=== PATIENT | female | born 1965 | race Hispanic/Latino ===

== ENCOUNTER 2023-03-03 23:51 | Emergency (ER) | payer SELFPAY ==
[2023-03-04] MEDS ORDERED: HYDROCODONE/APAP 5/325 MG TAB ONE (00:40)
--- NOTE | 2023-03-04 01:48 | ER ---
Nurse's Notes [facility] Name: Berta Betts Age: 58 yrs Sex: Female : 1965 Arrival Date: 03/03/2023 Time: 23:51 Bed Treatment Private MD: Diagnosis: Contusion of scalp Presentation: 03/04 00:09 Chief complaint: Patient states: she slipped and fell when coming out of the shower. Pt cm10 states that she hit the back of her head on the toilet bowl. No LOC, no blood thinners. Coronavirus screen: Vaccine status: Patient reports receiving the 2nd dose of the covid vaccine. Client denies travel out of the [place] in the last 14 days. Ebola Screen: Patient denies travel to an Ebola-affected area in the 21 days before illness onset. No symptoms or risks identified at this time. Initial Sepsis Screen: Does the patient meet any 2 criteria? No. Patient's initial sepsis screen is negative. Does the patient have a suspected source of infection? No. Patient's initial sepsis screen is negative. Risk Assessment: Do you want to hurt yourself or someone else? Patient reports no desire to harm self or others. Onset of symptoms was March 04, 2023 at 00:10. 00:09 Method Of Arrival: Ambulatory cm10 00:09 Acuity: BARBARA 4 cm10 Triage Assessment: 00:11 General: Appears in no apparent distress. comfortable, Behavior is calm, cooperative. cm10 Pain: Complains of pain in back of head. EENT: No deficits noted. No signs and/or symptoms were reported regarding the EENT system. Neuro: No deficits noted. Diaz Agitation-Sedation Scale (RASS): 0 - Alert and Calm Level of Consciousness is awake, alert, obeys commands, Oriented to person, place, time, situation. Cardiovascular: No deficits noted. Patient's skin is warm and dry. Respiratory: No deficits noted. Airway is patent Respiratory effort is even, unlabored, Respiratory pattern is regular, symmetrical. GI: No deficits noted. No signs and/or symptoms were reported involving the gastrointestinal system. : No deficits noted. No signs and/or symptoms were reported regarding the genitourinary system. Derm: No deficits noted. No signs and/or symptoms reported regarding the dermatologic system. Skin is intact, Skin is pink, warm \T\ dry. Musculoskeletal: No deficits noted. No signs and/or symptoms reported regarding the musculoskeletal system. Range of motion: intact in all extremities. Historical: - Allergies: 00:10 diclofenac sodium; cm10 - Home Meds: 00:10 metformin Oral [Active]; cm10 - PMHx: 00:10 Diabetes mellitus; cm10 - Immunization history:: Adult Immunizations unknown. - Social history:: Smoking status: Patient denies any tobacco usage or history of. - Family history:: not pertinent. Screenin:[facility] ED Fall Risk Assessment (Adult) History of falling in the last 3 months, cm10 including since admission Yes- single mechanical fall (1 pt) Confusion or Disorientation No (0 pts) Intoxicated or Sedated No (0 pts) Impaired Gait No (0 pts) Mobility Assist Device Used No (0 pt) Altered Elimination No (0 pt) Score/Fall Risk Level 0 - 2 = Low Risk Oriented to surroundings, Maintained a safe environment, Educated pt \T\ family on fall prevention, incl call for assistance when getting out of bed, Hourly rounding (assess needs \T\ fall precautionary measures) done. Abuse screen: Denies threats or abuse. Denies injuries from another. Nutritional screening: No deficits noted. Tuberculosis screening: No symptoms or risk factors identified. Assessment: 01:00 Reassessment: Patient appears in no apparent distress at this time. Patient and/or pf1 family updated on plan of care and expected duration. Pain level reassessed. Patient is alert, oriented x 3, equal unlabored respirations, skin warm/dry/pink. Patient states symptoms have improved. Vital Signs: 00:09 BP 152 / 83; Pulse 74; Resp 16; Temp 98.1; Pulse Ox 95% ; Weight 86 kg; Height 5 ft. 2 cm10 in. ; Pain 7/10; 01:30 BP 141 / 78; Pulse 70; Resp 16; Pulse Ox 97% on R/A; Pain 4/10; pf1 00:09 Body Mass Index 33.59 (86.00 kg, 160 cm) cm10 00:09 Pain Scale: Adult cm10 01:30 Pain Scale: Adult pf1 ED Course: 03/03 23:56 Patient arrived in ED. gm2 03/04 00:00 Ubaldo Gonzales MD is Attending Physician. rt 00:10 Triage completed. cm10 00:12 Arm band placed on Patient placed in an exam room, on a stretcher. cm10 00:54 CT Head C Spine In Process Unspecified. EDMS 01:57 Patient has correct armband on for positive identification. Provided Education on: ER cm10 process and procedures. . 01:58 No provider procedures requiring assistance completed. Patient did not have IV access cm10 during this emergency room visit. Administered Medications: 00:35 Drug: HYDROcodone-acetaminophen PO 5 mg-325 mg 1 tabs PO once Route: PO; pf1 01:58 Follow up: Response: No adverse reaction cm10 Medication: 01:57 VIS not applicable for this client. cm10 Outcome: 01:47 Discharge ordered by . rt 01:58 Discharged to home ambulatory, with significant other, cm10 01:58 Condition: good 01:58 Discharge instructions given to patient, Instructed on discharge instructions, follow up and referral plans. Demonstrated understanding of instructions, follow-up care, 01:58 Patient left the ED. cm10 Signatures: Dispatcher [employer] EDMS Ubaldo Gonzales MD MD rt Temitope Messina RN RN pf1 Geno Serna RN RN cm10 Marcie Barber 2
--- NOTE | 2023-03-04 01:48 | EDPHYS ---
Physician Documentation [facility] Name: Berta Betts Age: 58 yrs Sex: Female : 1965 Arrival Date: 03/03/2023 Time: 23:51 Bed Treatment Private MD: ED Physician Ubaldo Gonzales HPI: 03/04 01:14 This 58 yrs old Female presents to ER via Ambulatory with complaints of Facial rt Injury, Head Injury-Adult. 01:14 About 1 hour prior to arrival, the patient slipped while in a bathtub, falling hitting rt the back of her head. Reports pain to that area as well as a pain to the right lateral neck. Denies loss of consciousness or other pain. Denies other acute complaints at this time, symptoms are moderate severity, aching nature, nonradiating, no other aggravating or alleviating factors.. Historical: - Allergies: 00:10 diclofenac sodium; cm10 - Home Meds: 00:10 metformin Oral [Active]; cm10 - PMHx: 00:10 Diabetes mellitus; cm10 - Immunization history:: Adult Immunizations unknown. - Social history:: Smoking status: Patient denies any tobacco usage or history of. - Family history:: not pertinent. ROS: 01:14 Constitutional: Negative for fever, chills, and weight loss, Cardiovascular: Negative rt for chest pain, palpitations, and edema, Respiratory: Negative for shortness of breath, cough, wheezing, and pleuritic chest pain, Abdomen/GI: Negative for abdominal pain, nausea, vomiting, diarrhea, and constipation, MS/Extremity: Negative for injury and deformity, Psych: Negative for depression, anxiety, suicide ideation, homicidal ideation, and hallucinations, 01:14 Neck: Positive for pain with movement, Negative for stiffness, 01:14 Neuro: Positive for headache, Negative for loss of consciousness, Exam: 01:14 Constitutional: This is a well developed, well nourished patient who is awake, alert, rt and in no acute distress. Chest/axilla: Normal chest wall appearance and motion. Nontender with no deformity. No lesions are appreciated. Cardiovascular: Regular rate and rhythm with a normal S1 and S2. No gallops, murmurs, or rubs. Normal PMI, no JVD. No pulse deficits. Respiratory: Lungs have equal breath sounds bilaterally, clear to auscultation and percussion. No rales, rhonchi or wheezes noted. No increased work of breathing, no retractions or nasal flaring. Abdomen/GI: Soft, non-tender, with normal bowel sounds. No distension or tympany. No guarding or rebound. No evidence of tenderness throughout. Skin: Warm, dry with normal turgor. Normal color with no rashes, no lesions, and no evidence of cellulitis. MS/ Extremity: Pulses equal, no cyanosis. Neurovascular intact. Full, normal range of motion. Neuro: Awake and alert, GCS 15, oriented to person, place, time, and situation. Cranial nerves II-XII grossly intact. Motor strength 5/5 in all extremities. Sensory grossly intact. Cerebellar exam normal. Normal gait. Psych: Awake, alert, with orientation to person, place and time. Behavior, mood, and affect are within normal limits. 01:14 Head/face: Contusion noted to the back of the head, no lacerations, no other external evidence of trauma. 01:14 Neck: Right paraspinal neck tenderness, no midline tenderness, no step-offs, Vital Signs: 00:09 BP 152 / 83; Pulse 74; Resp 16; Temp 98.1; Pulse Ox 95% ; Weight 86 kg; Height 5 ft. 2 cm10 in. ; Pain 7/10; 01:30 BP 141 / 78; Pulse 70; Resp 16; Pulse Ox 97% on R/A; Pain 4/10; pf1 00:09 Body Mass Index 33.59 (86.00 kg, 160 cm) cm10 00:09 Pain Scale: Adult cm10 01:30 Pain Scale: Adult pf1 MDM: 00:13 Patient medically screened. rt 01:48 Differential diagnosis: Contusion of Hematoma on Laceration of Intracranial bleed- rt Concussion. Data reviewed: vital signs, nurses notes, radiologic studies. Independent interpretation of the following test(s) in the Emergency Department CT Scan: My interpretation is No hemorrhage seen on interpretation of CT scan images. Test considered but Not performed: EKG: Reports mechanical fall, no loss of consciousness, syncope, near syncope, EKG, labs not indicated. Care significantly affected by the following chronic conditions: Diabetes. Counseling: I had a detailed discussion with the patient and/or guardian regarding the historical points, exam findings, and any diagnostic results supporting the discharge/admit diagnosis, radiology results, the need for outpatient follow up. Response to treatment: the patient's symptoms have markedly improved after treatment. 03/04 00:13 Order name: CT Head C Spine rt Administered Medications: 00:35 Drug: HYDROcodone-acetaminophen PO 5 mg-325 mg 1 tabs PO once Route: PO; pf1 01:58 Follow up: Response: No adverse reaction cm10 Disposition Summary: 03/04/23 01:47 Discharge Ordered Notes: Location: Home rt Problem: new rt Symptoms: have improved rt Condition: Stable rt Diagnosis - Contusion of scalp rt Followup: rt - With: Private Physician - When: 2 - 3 days - Reason: Discharge Instructions: - Discharge Summary Sheet rt - Facial or Scalp Contusion rt Forms: - Medication Reconciliation Form rt - Thank You Letter rt - Antibiotic Education rt - Prescription Opioid Use rt - Patient Portal Instructions rt - Leadership Thank You Letter rt Signatures: Dispatcher [employer] Ubaldo Naidu MD MD rt Temitope Messina RN RN pf1 Geno Serna RN RN cm10
[2023-03-04 02:11] VITALS: BP 152/83; TEMP 98.1; O2SAT 95
--- NOTE | 2023-03-05 18:33 | RAD REPORT ---
EXAM DESCRIPTION: CT - Head C Spine Mpr Wo Con - 03/04/2023 6:27 am CLINICAL HISTORY: 58 years Female TRAUMA COMPARISON: None TECHNIQUE: Images were obtained in axial, sagittal, and coronal planes. This exam was performed according to our departmental dose-optimization program which includes use of Automated Exposure Control, adjustment of the mA and/or kV according to patient size and/or use of iterative reconstruction technique. FINDINGS: CT brain: Ventricular system appears normal. No abnormal areas of increased attenuation se en. No extra-axial fluid collections noted. Scalp soft tissue swelling with hematoma posteriorly on t he right. No evidence for skull fracture. Symmetric aeration mastoid air cells bilaterally. Unremarka ble paranasal sinuses. CT cervical spine: Height of the vertebral bodies is intact. Satisfactory alignment articular facets. Intact odontoid and predental space. Prevertebral soft tissues appear normal. Intact occipital condy les. Posterior elements intact on all levels. Mild anterior osteophyte formation C5-6. Marginal spur formation with neural foraminal narrowing bilaterally also seen at this level. No abnormality lung ap ices bilaterally. IMPRESSION: No acute intracranial abnormality. No evidence for hemorrhage, mass lesion, or large acu te infarction. Scalp soft tissue swelling with hematoma posteriorly on the right. No acute fracture or subluxation involving the cervical spine line. Mild degenerative change C5-6. Electronically signed by: Britni Ewing MD 03/04/2023 1:17 AM CDT Due to temporary technical issues with the PACS/Fluency reporting system, reports are being signed by the in house radiologists without review as a courtesy to insure prompt reporting. The interpreting radiologist is fully responsible for the content of the report.
== END 2023-03-04 01:58 | disposition home or self-care (01) ==
LOC: ER 23:51
DX: S00.03XA Contusion of scalp, initial encounter (principal); M54.2 Cervicalgia; E11.9 Type 2 diabetes mellitus without complications
CPT/HCPCS: 70450; 72125; 99283